=== PATIENT | male | born 1980 | race Caucasian/White ===

== ENCOUNTER 2016-02-21 07:02 | Emergency (ER) | payer BC ==
[2016-02-21 07:16] VITALS: BP 116/58
--- NOTE | 2016-02-21 07:29 | UC ---
Throat Pain/Nasal Bam HPI - HPI Summary HPI Summary: Sore throat for 2 days, swollen neck glands, with elevated tactile temp. Started with body aches that resolved. no cough. + swollen glands. had strep as a child and feels the same. he has had amox as abx in past w/o a problem (has ceclor allergy). 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 - History of Current Complaint Chief Complaint: UCRespiratory Stated Complaint: SORE THROAT,FEVER Time Seen by Provider: 02/21/16 07:15 - Allergies/Home Medications Allergies/Adverse Reactions: Allergies Allergy/AdvReac Type Severity Reaction Status Date / Time Cefaclor [From Ceclor] Allergy Intermediate Rash Verified 02/21/16 07:16 Home Medications: Home Medications Acetaminophen [Acetaminophen Extra Stren] 1,000 mg PO BID PRN 02/21/16 [History Confirmed 02/21/16] PMH/Surg Hx/FS Hx/Imm Hx Previously Healthy: Yes Endocrine History Of: Denies: Diabetes, Thyroid Disease Cardiovascular History Of: Denies: Cardiac Disorders - Surgical History Surgical History: None - Family History Known Family History: Positive: Cardiac Disease - GF - Social History Alcohol Use: Rare Substance Use Type: None Smoking Status (MU): Never Smoked Tobacco Review of Systems Constitutional: Fever Skin: Negative Eyes: Negative ENT: Sore Throat Respiratory: Negative Cardiovascular: Negative Gastrointestinal: Negative Genitourinary: Negative Motor: Negative Neurovascular: Negative Musculoskeletal: Negative Neurological: Negative Psychological: Negative All Other Systems Reviewed And Are Negative: Yes Physical Exam Triage Information Reviewed: Yes Appearance: Well-Appearing, No Pain Distress, Well-Nourished - very pleasant Vital Signs: Initial Vital Signs Temp 98.8 F 02/21/16 07:10 Pulse 95 02/21/16 07:10 Resp 20 02/21/16 07:10 BP 116/58 02/21/16 07:10 Pulse Ox 100 02/21/16 07:10 Vital Signs Reviewed: Yes Eye Exam: Normal ENT: Positive: Hearing grossly normal, Pharyngeal erythema, TMs normal. Negative: Tonsillar swelling, Tonsillar exudate Dental Exam: Normal Neck exam: Normal Neck: Positive: Supple, Enlarged Nodes @ - anterior cervical, tender, mobile, rubbery. Respiratory Exam: Normal Respiratory: Positive: Lungs clear, Normal breath sounds, No respiratory distress, No accessory muscle use Cardiovascular Exam: Normal Cardiovascular: Positive: RRR, No Murmur, Pulses Normal, Brisk Capillary Refill Abdomen Description: Positive: Nontender, Soft Musculoskeletal Exam: Normal Neurological Exam: Normal Psychological Exam: Normal Skin Exam: Normal Throat Pain/Nasal Course/Dx - Course Course Of Treatment: rapid strep pos. - Differential Dx/Diagnosis Differential Diagnosis/HQI/PQRI: Influenza, Laryngitis, Peritonsillar Abscess, Pharyngitis, Sinusitis, Tonsillitis, URI Provider Diagnoses: strep pharyngitis Discharge - Discharge Plan Condition: Stable Disposition: HOME Prescriptions: Amoxicillin (*) 875 mg PO BID #20 tab Patient Education Materials: Strep Throat (ED) Referrals: No Primary Care Phys,NOPCP [Primary Care Provider] - Shreya Rodriguez MD [Medical Doctor] - 1 Week Additional Instructions: take a probiotic while you are on the antibiotic. Your strep culture was positive. There is a very low chance of having an allergic reaction with amoxicillin with history of ceclor allergy. We talked about signs to look for with allergic reaction and to stop the medicine immediately and seek immediate care if any occur - hives, itching, swelling in your lips, tongue or throat
== END 2016-02-21 07:44 | disposition home or self-care (01) ==
LOC: UCCORT 07:02
DX: J02.0 Streptococcal pharyngitis (principal); Z88.1 Allergy status to other antibiotic agents
CPT/HCPCS: 87651; 99212; G0463

== ENCOUNTER 2016-10-09 07:07 | Emergency (ER) | payer BC ==
[2016-10-09 07:18] VITALS: BP 111/71
--- NOTE | 2016-10-09 07:39 | UC ---
Ear Complaint HPI - HPI Summary HPI Summary: right ear discomfort x 2 weeks right ear feels plugged, no pain , no cold symptoms no fever or chills - History of Current Complaint Chief Complaint: UCEar Stated Complaint: RIGHT EAR COMPLAINT Time Seen by Provider: 10/09/16 07:23 Hx Obtained From: Patient Onset/Duration: Gradual Onset, Lasting Weeks - 2, Still Present Severity Initially: Moderate Severity Currently: Moderate Aggravating Factors: Nothing Alleviating Factors: Nothing Associated Signs/Symptoms: Positive: Hearing Loss. Negative: Discharge, Foreign Body Sensation, Trauma to Ear, Swelling @, URI Symptoms - Allergies/Home Medications Allergies/Adverse Reactions: Allergies Allergy/AdvReac Type Severity Reaction Status Date / Time Cefaclor [From [facility]] Allergy Intermediate Rash Verified 10/09/16 07:12 Home Medications: Home Medications NK [No Home Medications Reported] 10/09/16 [History Confirmed 10/09/16] PMH/Surg Hx/FS Hx/Imm Hx Previously Healthy: Yes - Surgical History Surgical History: None - Family History Known Family History: Positive: Cardiac Disease - GF - Social History Alcohol Use: Rare Substance Use Type: None Smoking Status (MU): Never Smoked Tobacco Review of Systems Constitutional: Negative Skin: Negative Eyes: Negative ENT: Other - decrease hearing right ear Respiratory: Negative Gastrointestinal: Negative All Other Systems Reviewed And Are Negative: Yes Physical Exam Triage Information Reviewed: Yes Appearance: Well-Appearing, No Pain Distress, Well-Nourished Vital Signs: Initial Vital Signs Temp 97.9 F 10/09/16 07:13 Pulse 67 10/09/16 07:13 Resp 16 10/09/16 07:13 BP 111/71 10/09/16 07:13 Pulse Ox 99 10/09/16 07:13 Vital Signs Reviewed: Yes Eyes: Positive: Conjunctiva Clear ENT: Positive: Normal ENT inspection, Hearing grossly normal, Pharynx normal, TMs normal, Other: - cerumen impaction bilateraly cerumen was removed with warm water flush. Negative: TM bulging, TM dull, TM red Neck: Positive: Supple, Nontender, No Lymphadenopathy Respiratory: Positive: Chest non-tender, Lungs clear, Normal breath sounds Cardiovascular: Positive: RRR, No Murmur, Pulses Normal Ear Complaint Course/Dx - Differential Dx/Diagnosis Provider Diagnoses: cerumen impaction Discharge - Discharge Plan Condition: Stable Disposition: HOME Patient Education Materials: Meghan Impactbetty (ED) Referrals: Shreya Rodriguez MD [Primary Care Provider] - If Needed
--- NOTE | 2016-10-14 11:04 | UC ---
Progress - Progress Note Progress Note: bilateral cerumen impaction bilateral warm water flush was done by the provider to removed the cerumen pt. tolerated the procedure well, cerumen was removed fully from both ears
== END 2016-10-09 07:44 | disposition home or self-care (01) ==
LOC: UCCORT 07:07
DX: H61.23 Impacted cerumen, bilateral (principal); Z88.1 Allergy status to other antibiotic agents
CPT/HCPCS: 69209; 69210; 99211; G0463

== ENCOUNTER 2018-08-23 11:57 | Emergency (ER) | payer BC ==
[2018-08-23 12:55] VITALS: BP 104/63
--- NOTE | 2018-08-23 13:11 | UC ---
Throat Pain/Nasal Bam HPI - HPI Summary HPI Summary: 38-year-old male comes in with a chief complaint of sore throat ear pressure and sinus congestion. He also has a headache that's mild occipital. Does have some rhinorrhea that is yellow in color. Had some chills early in the illness no recent fevers. No chest congestion or shortness of breath. - History of Current Complaint Chief Complaint: UCRespiratory Stated Complaint: SINUS COMPLAINT Time Seen by Provider: 08/23/18 12:48 Pain Intensity: 0 - Allergies/Home Medications Allergies/Adverse Reactions: Allergies Allergy/AdvReac Type Severity Reaction Status Date / Time cefaclor [From [facility]] Allergy Rash Verified 08/23/18 12:55 PMH/Surg Hx/FS Hx/Imm Hx Previously Healthy: Yes - Surgical History Surgical History: Yes Surgery Procedure, Year, and Place: ear tubes x 3 as a child - Family History Known Family History: Positive: Cardiac Disease - GF - Social History Alcohol Use: None Substance Use Type: None Smoking Status (MU): Never Smoked Tobacco Review of Systems All Other Systems Reviewed And Are Negative: Yes Constitutional: Positive: Chills Skin: Positive: Negative Eyes: Positive: Negative ENT: Positive: Sore Throat, Ear Ache, Nasal Discharge, Sinus Congestion Respiratory: Positive: Negative Cardiovascular: Positive: Negative Gastrointestinal: Positive: Negative Motor: Positive: Negative Neurovascular: Positive: Negative Musculoskeletal: Positive: Negative Neurological: Positive: Headache Psychological: Positive: Negative Is Patient Immunocompromised?: No Physical Exam Triage Information Reviewed: Yes Appearance: Well-Appearing, No Pain Distress, Well-Nourished Vital Signs: Initial Vital Signs Temp 98.6 F 08/23/18 12:50 Pulse 68 08/23/18 12:50 Resp 14 08/23/18 12:50 BP 104/63 08/23/18 12:50 Pulse Ox 100 08/23/18 12:50 Vital Signs Reviewed: Yes Eye Exam: Normal Eyes: Positive: Conjunctiva Clear ENT: Positive: Pharyngeal erythema, TMs normal Neck: Positive: Supple Respiratory: Positive: Lungs clear, Normal breath sounds, No respiratory distress Cardiovascular: Positive: RRR Musculoskeletal Exam: Normal Musculoskeletal: Positive: Strength Intact, ROM Intact Neurological Exam: Normal Neurological: Positive: Alert, Muscle Tone Normal Psychological Exam: Normal Psychological: Positive: Age Appropriate Behavior Skin Exam: Normal Throat Pain/Nasal Course/Dx - Course Course Of Treatment: DISCUSSED VIRAL VERSES BACTERIAL INFECTION AND THE ROLE OF ANTIBIOTICS. THE PATIENT PREFERS TO BE ON ANTIBIOTICS AT THIS TIME. Patient's symptoms most likely secondary to sinusitis with the yellow rhinorrhea. Patient is reevaluated if not improving or worse. - Differential Dx/Diagnosis Provider Diagnosis: Sinusitis Discharge - Sign-Out/Discharge Documenting (check all that apply): Patient Departure All imaging exams completed and their final reports reviewed: No Studies - Discharge Plan Condition: Stable Disposition: HOME Prescriptions: Amoxicillin/Clavulanate TAB* [Augmentin TAB 875*] 875 mg PO BID #20 tab Fluticasone NASAL SPRAY 50MCG* [Flonase NASAL SPRAY 50MCG*] 2 spray BOTH NARES DAILY #1 btl Patient Education Materials: Sinusitis (ED) Referrals: Shreya Rodriguez MD [Primary Care Provider] - Additional Instructions: FOLLOW UP WITH YOUR DOCTOR IF NOT COMPLETELY IMPROVED. GET REEVALUATED SOONER IF WORSE OR ANY QUESTIONS OR CONCERNS. - Billing Disposition and Condition Condition: STABLE Disposition: Home
== END 2018-08-23 13:18 | disposition home or self-care (01) ==
LOC: UCCORT 11:57
DX: J32.9 Chronic sinusitis, unspecified (principal); Z88.1 Allergy status to other antibiotic agents
CPT/HCPCS: 99212; G0463